=== PATIENT | female | born 1995 ===

== ENCOUNTER 2019-12-23 16:10 | Observation (INO) | payer OTHER ==
--- NOTE | 2019-12-23 16:10 | NUR ---
JUD LEE presented to unit via from ED, accompanied by ems, with c/o ELEVATED BP;2/8 BPP. JUD LEE weighed, gowned, voided, and to bed. EFHM and TOCO applied, VS taken. JUD LEE oriented to bed controls, call light, TV, heat, and A/C controls.
[2019-12-23] MEDS ORDERED: LACTATED RINGERS 1,000 ML IV SCH (16:45)
[2019-12-23 16:47] LABS: BILIRUBIN,URINE NEGATIVE (NEGATIVE); CLARITY,URINE CLEAR; COLOR,URINE YELLOW; GLUCOSE, URINE (UA) NEGATIVE (NEGATIVE); KETONES,URINE NEGATIVE (NEGATIVE); LEUKOCYTE ESTERASE ,URINE NEGATIVE (NEGATIVE); NITRITE,URINE NEGATIVE (NEGATIVE); PROTEIN,URINE NEGATIVE (NEGATIVE)
[2019-12-23 16:59] LABS: HEMOGLOBIN 11.4 g/dL (11.5-16.0); MEAN PLATELET VOLUME 11.4 fL (9.0-12.2); WHITE BLOOD COUNT 7.6 10^3/uL (4.3-11.0)
[2019-12-23 17:03] LABS: AMPHETAMINE SCREEN, URINE POSITIVE (NEGATIVE); BARBITURATE SCREEN URINE NEGATIVE (NEGATIVE); BENZODIAZEPINES SCREEN URINE NEGATIVE (NEGATIVE); CANNABINOID SCREEN, URINE NEGATIVE (NEGATIVE); COCAINE SCREEN URINE NEGATIVE (NEGATIVE); METHADONE STAT NEGATIVE (NEGATIVE); METHAMPHETAMINE SCREEN URINE S POSITIVE (NEGATIVE); OPIATE SCREEN URINE NEGATIVE (NEGATIVE); OXYCODONE STAT NEGATIVE (NEGATIVE); PROPOXYPHENE STAT NEGATIVE (NEGATIVE); TRICYCLIC ANTIDEPRESSANTS SCRE NEGATIVE (NEGATIVE)
--- NOTE | 2019-12-23 17:05 | History & Physical-OB/GYN ---
JENELLE MCGRATH MD 12/23/19 1705: History of Present Illness History of Present Illness Reason for visit/HPI elevated BP and BPP 2/8 in clinic Date of Admission 12/23/19 Date Seen by a Provider: Dec 23, 2019 Time Seen by a Provider: 17:00 I consulted on this patient on 12/23/19 16:59 Attending Physician Sameer Sierra MD Admitting Physician Sameer Sierra MD [facility] Consult James was seen in the office today for routine visit and was found to have elevated blood pressure of 152/96. BPP in the office was 2/8, so she was sent to OB triage by EMS. She reports she has not had elevated blood pressures during this . She has a headache, but it is the same as her usual headaches. It is not the worst headache she has ever had in her life. No visual changes, RUQ pain, chest pain, shortness of breath, or worsening lower extremity swelling. She reports that she smokes a half-pack of cigarettes daily. She uses meth, but last use was "a few weeks ago." Prior was term, c/b GDMA1 (diet controlled), and delivery was vaginal and uncomplicated. She is anxious about how things are going now, but otherwise has no other concerns or questions. VB-, LOF-, Ctx-, FM+ Allergies and Home Medications Allergies Coded Allergies: No Known Drug Allergies (Unverified , 12/23/19) Home Medications No Active Prescriptions or Reported Meds Patient Home Medication List Home Medication List Reviewed: Yes Past Nxdpzmi-Jthjhs-Vlqctk Hx Patient Social History Number of Children: 1 Alcohol Use: Denies Use Recreational Drug Use: Yes Drug of Choice: meth, last use a few weeks ago Smoking Status: Current Everyday Smoker Cigaretts per day: 10 Type Used: Cigarettes Immunizations Up To Date Tetanus Booster (TDap): Less than 5yrs Respiratory No Cardiovascular No Neurological Headaches /Migraines Reproductive System : Yes Hx : 2 Hx Para: 1 Hx Total # of Abortions (Spona: 0 HIV/AIDS: No Review of Systems Constitutional: no symptoms reported EENTM: No blurred vision, No eye pain, No vision loss, No nose congestion, No throat pain Respiratory: No cough, No short of breath Cardiovascular: No chest pain; edema Gastrointestinal: No RUQ, No abdominal pain, No constipation, No diarrhea, No nausea, No vomiting Genitourinary: no symptoms reported : Yes Control/STD Prophylaxis: None Musculoskeletal: no symptoms reported Skin: no symptoms reported Psychiatric/Neurological: Anxiety All Other Systems Reviewed Negative Unless Noted: Yes Physical Exam Physical Exam Vital Signs Capillary Refill : Labs Laboratory Tests 12/23/19 16:15: 12/23/19 16:49: General Appearance: Anxious Respiratory: Chest Non Tender, No Accessory Muscle Use, No Respiratory Distress Cardiovascular: Normal Peripheral Pulses Abdominal: non tender Extremity: Normal Range of Motion, Non Tender, No Calf Tenderness, Swelling Assessment/Plan Assessment and Plan 24 y/o at 34w6d (KRISTA 01/28/20) by LMP with c/b Meth use, tobacco use, chlamydia during 3rd tri, H/o GDMA1 admitted for PreE r/o and non- reassuring BPP - labs otherwise wnl #Elevated Blood pressure during - BP 152/96 in clinic > Observe overnight and monitor BP q4 hours > PreE labs, including urine P:C ratio and UA #Non-Reassuring BioPhysical Profile - BPP 2/8 in office on 12/23/19 > LR bolus; encourage oral intake; will consider mIVF if needed > observe overnight and repeat BPP 12/24/19 in AM #Chlamydia during 3rd trimester - Chlamydia positive on 12/16/19 > f/u urine Ct for BROOKS #Meth use - reported last use a few weeks ago. May be contributing to elevated blood pressures > Cup Machine Operator consult; appreciate recs #Tobacco Use - Currently smoking 1/2 ppd > Encouraged tobacco cessation > Cup Machine Operator consult; appreciate recs d/w Dr. Mariela Mcgrath MD [facility] Resident Physician, PGY-2 Admission Diagnosis Admission Status: Observation Diagnosis/Problems Diagnosis/Problems (1) History of biophysical profile (2) Elevated blood pressure reading Status: Acute (3) Methamphetamine use Status: Acute (4) Chlamydia infection affecting in third trimester Status: Acute SAMEER SIERRA MD 12/26/19 1118: Allergies and Home Medications Allergies Coded Allergies: No Known Drug Allergies (Unverified , 12/23/19) Home Medications No Active Prescriptions or Reported Meds Supervisory-Addendum Brief Supervisory Addendum Verification and Attestation of Medical Student E/M Service A medical student performed and documented this service in my presence. I reviewed and verified all information documented by the medical student and made modifications to such information, when appropriate. I personally performed the physical exam and medical decision making. Sameer Sierra, Dec 26, 2019,11:18 See Short Stay Summary JENELLE MCGRATH MD Dec 23, 2019 17:05 SAMEER SIERRA MD Dec 26, 2019 11:18
[2019-12-23 17:09] LABS: ALBUMIN 2.8 GM/DL (3.2-4.5)
[2019-12-23 17:10] LABS: CHLORIDE 108 MMOL/L (98-107); POTASSIUM 3.8 MMOL/L (3.6-5.0); SODIUM 135 MMOL/L (135-145)
[2019-12-23 17:12] LABS: URINE CREATININE FOR RATIO 115 MG/DL (30-125)
[2019-12-23 17:12] LABS: GLUCOSE 104 MG/DL (70-105); TOTAL PROTEIN 5.9 GM/DL (6.4-8.2)
[2019-12-23 17:13] LABS: BACTERIA,URINE NEGATIVE /HPF; URINE PROTEIN FOR RATIO ONLY 15 MG/DL (6-12)
[2019-12-23 17:13] LABS: CARBON DIOXIDE 18 MMOL/L (21-32)
[2019-12-23 17:14] LABS: BILIRUBIN,TOTAL 0.2 MG/DL (0.1-1.0)
[2019-12-23 17:15] LABS: ALKALINE PHOSPHATASE 99 U/L (40-136)
[2019-12-23 17:16] LABS: CREATININE SERUM 0.61 MG/DL (0.60-1.30); GFR ESTIMATED > 60
[2019-12-23 17:17] LABS: BUN/CREATININE RATIO 16
[2019-12-23 17:19] LABS: ALANINE AMINOTRANSFERASE 12 U/L (0-55); URIC ACID 4.1 MG/DL (2.6-7.2)
[2019-12-23 17:31] VITALS: BP 127/68
--- NOTE | 2019-12-23 19:30 | NUR ---
To pt room. Assessments and vs done. No needs at this time. Discussed POC with pt. Verbalized understanding.
[2019-12-23 20:00] VITALS: BP 122/61
--- NOTE | 2019-12-23 21:30 | NUR ---
Resting comfortably. No needs. Denies FRAGA, blurry vision, epigastric pain
--- NOTE | 2019-12-24 00:45 | NUR ---
Pt sleeping soundly.
[2019-12-24 00:51] VITALS: BP 104/53
--- NOTE | 2019-12-24 02:00 | NUR ---
Up to bathroom to void. No needs.
--- NOTE | 2019-12-24 04:00 | NUR ---
Pt is sleeping soundly.
--- NOTE | 2019-12-24 05:00 | NUR ---
Pt is lying on side. Difficult to trace baby. Audible good movement while adjusting monitors.
--- NOTE | 2019-12-24 05:55 | OB Triage Report ---
JENELLE MCGRATH MD 12/24/19 0555: Standard Progress Note Progress Notes/Assess & Plan Date Seen by a Provider: Dec 24, 2019 Time Seen by a Provider: 05:50 Expected Date of Delivery: Jan 28, 2020 Gestational Age in Weeks: 35 Gestational Age in Days: 0 LMP/KRISTA Comment: Patient without complaints this morning. Feeling better overall and less anxious. Denies headahces, RUQ pain, visual changes, chest pain, or shortness of breath. Hopeful that her BPP will be done soon. Review of Systems otherwise negative Physical Exam: Gen: no acute distress Resp: non-labored respiration GI: Gravid abdomen Ext: mild lower extremity non-pitting edema Neuro: grossly intact Progress/Assessment & Plan 24 y/o at 35w0d (KRISTA 01/28/20) by LMP with c/b Meth use, tobacco use, chlamydia during 3rd tri, H/o GDMA1 admitted for PreE r/o and non- reassuring BPP - labs otherwise wnl #Non-Reassuring BioPhysical Profile - BPP 2/8 in office on 12/23/19 > LR bolus; encourage oral intake; will consider mIVF if needed > repeat BPP 12/24/19 in AM #Elevated Blood pressure during - BP 152/96 in clinic; BP since admission wnl - PreE labs reassuring, urine P:C ratio 0.13 > monitor BP q4 hours #Chlamydia during 3rd trimester - Chlamydia positive on 12/16/19 > f/u urine Ct for BROOKS #Meth use - UDS positive for meth and amphetamines. May be contributing to elevated blood pressures > Crutcher Helper consult; appreciate recs #Tobacco Use - Currently smoking 1/2 ppd > Encouraged tobacco cessation > Crutcher Helper consult; appreciate recs d/w Dr. Mariela Mcgrath MD [facility] Resident Physician, PGY-2 Diagnosis/Problems Diagnosis/Problems (1) History of biophysical profile (2) Elevated blood pressure reading Status: Acute (3) Methamphetamine use Status: Acute (4) Chlamydia infection affecting in third trimester Status: Acute SAMEER SIERRA MD 12/26/19 1119: Supervisory-Addendum Brief Supervisory Addendum Verification and Attestation of Medical Student E/M Service A Resident Physician performed and documented this service in my presence. I reviewed and verified all information documented by the medical student and made modifications to such information, when appropriate. I personally performed the physical exam and medical decision making. Sameer Sierra, Dec 26, 2019,11:18 See Short Stay Summary JENELLE MCGRATH MD Dec 24, 2019 05:55 SAMEER SIERRA MD Dec 26, 2019 11:19
[2019-12-24 06:00] VITALS: BP 103/52
--- NOTE | 2019-12-24 07:20 | NUR ---
Report given to Jessica DAVALOS
--- NOTE | 2019-12-24 07:20 | NUR ---
REPORT RECEIVED FROM SHANTA DAVALOS.
--- NOTE | 2019-12-24 07:45 | NUR ---
INITIAL ASSESSMENT COMPLETED, VSS SEE INTERVENTIONS FOR DETAILED ASSESSMENTS, PLAN OF CARE REVIEWED WITH PT, NO QUESTIONS OR CONCERNS NOTED.
--- NOTE | 2019-12-24 08:20 | NUR ---
BPP RESULTS CALLED TO DR PAUL, MESSAGE LEFT.
--- NOTE | 2019-12-24 08:28 | Diagnostic Imaging Report ---
TIME OF STUDY: 12/24/2019 8:20 AM INDICATION: BPP 2/8 on 12/23/19 w/ ESCOBAR 8.5. COMPARISON: None available. TECHNIQUE: Transabdominal sonogram was performed. GESTATIONAL AGE: 35 weeks, 0 days GENERAL EVALUATION: Presentation: Cephalic Placenta: Posterior Cardiac activity: 142 bpm Amniotic fluid index: The total ESCOBAR is 12 cm. The largest vertical pocket measures 6.0 cm. BIOPHYSICAL PROFILE SCORING: tone: 2 movement: 2 breathin Amniotic fluid: 2 TOTAL SCORE: 6 out of 8 FINDINGS/ IMPRESSION: 1. Single live intrauterine gestation with biophysical profile score of 6 out of 8. No gross abnormalities are detected. heart rate is 142 bpm. Total ESCOBAR is 12 cm. Recommend follow-up as indicated. Dictated by: Dictated on workstation # [id number]
--- NOTE | 2019-12-24 08:30 | NUR ---
DR PAUL HERE REVIEWING SONO RESULTS. NEW ORDERS RECEIVED.
[2019-12-24 08:45] VITALS: BP 111/57
--- NOTE | 2019-12-24 09:05 | NUR ---
DISCHARGE INSTRUCTIONS EXPLAINED WITH PT, PT VERBALIZES UNDERSTANDING. INSTRUCTIONS SIGNED, NO DISTRESS NOTED, PT TO RETURN FRIDAY AT 2PM TO [facility] FOR REPEAT BPP. PT AMBULATED TO [facility] FOR CARE VAN TRANSFER HOME.
--- NOTE | 2019-12-24 09:08 | Short Stay Summary ---
HPI History of Present Illness: 24 yo @ 35.0 wga today sent from clinic for BPP 2/8 and elevated blood pressures. Patient has long history of substance abuse. States that she has not done Meth in over 4 weeks but UDS is +. She is feeling baby move. Denies any LOF, Vag bleeding or ctxs. ON: Blood pressures have been 120/80s. Baby has been reactive all night. No ctxs or pain. Normal pre eclampsia labs. Source: patient Exam Limitations: no limitations Date seen by provider: Dec 24, 2019 Time Seen by Provider: 08:35 Attending Physician Sameer Sierra MD PCP [place] Includes [facility] Consult Date of Admission Dec 23, 2019 at 16:11 Home Medications Home Medications Reviewed patient Home Medication Reconciliation performed by pharmacy medication reconciliations geophysical data technician and/or nursing. Patients Allergies have been reviewed. Allergies Coded Allergies: No Known Drug Allergies (Unverified , 12/23/19) DGS-Mbwtvq-Vhmjoa Hx Patient Social History Number of Children: 1 Alcohol Use: Denies Use Recreational Drug Use: Yes Drug of Choice: meth, amphetemines Smoking Status: Current Everyday Smoker Cigaretts per day: 10 Type Used: Cigarettes 2nd Hand Smoke Exposure: No Immunizations Up To Date Tetanus Booster (TDap): Less than 5yrs Date of Influenza Vaccine: Nov 23, 2019 Past Medical History Substance Abuse Depression Family Medical History Significant Family History: No Pertinent Family Hx Review of Systems ([facility]) Constitutional: no symptoms reported; No chills, No fever EENTM: blurred vision Respiratory: no symptoms reported; No cough, No dyspnea on exertion, No short of breath Cardiovascular: no symptoms reported; No chest pain, No edema Gastrointestinal: no symptoms reported; No abdominal pain, No nausea, No vomiting Genitourinary: No dysuria; frequency; No hematuria : Yes Musculoskeletal: no symptoms reported Skin: no symptoms reported Psychiatric/Neurological: Headache Reviewed Test Results Reviewed Test Results Lab Laboratory Tests Test 12/23/19 16:15 12/23/19 16:49 Range/Units Urine Color YELLOW Urine Clarity CLEAR Urine pH 6.0 5-9 Urine Specific [place] 1.025 H 1.016-1.022 Urine Protein 15 H 6-12 MG/DL Urine Glucose (UA) NEGATIVE NEGATIVE Urine Ketones NEGATIVE NEGATIVE Urine Nitrite NEGATIVE NEGATIVE Urine Bilirubin NEGATIVE NEGATIVE Urine Urobilinogen 0.2 < = 1.0 MG/DL Urine Leukocyte Esterase NEGATIVE NEGATIVE Urine RBC (Auto) NEGATIVE NEGATIVE Urine RBC NONE /HPF Urine WBC NONE /HPF Urine Squamous Epithelial Cells 2-5 /HPF Urine Crystals NONE /LPF Urine Bacteria NEGATIVE /HPF Urine Casts NONE /LPF Urine Mucus NEGATIVE /LPF Urine Culture Indicated NO Urine Creatinine 115 30-125 MG/DL Urine Protein/Creatinine Ratio 0.13 Urine Opiates Screen NEGATIVE NEGATIVE Urine Oxycodone Screen NEGATIVE NEGATIVE Urine Methadone Screen NEGATIVE NEGATIVE Urine Propoxyphene Screen NEGATIVE NEGATIVE Urine Barbiturates Screen NEGATIVE NEGATIVE Ur Tricyclic Antidepressants Screen NEGATIVE NEGATIVE Urine Phencyclidine Screen NEGATIVE NEGATIVE Urine Amphetamines Screen POSITIVE H NEGATIVE Urine Methamphetamines Screen POSITIVE H NEGATIVE Urine Benzodiazepines Screen NEGATIVE NEGATIVE Urine Cocaine Screen NEGATIVE NEGATIVE Urine Cannabinoids Screen NEGATIVE NEGATIVE White Blood Count 7.6 4.3-11.0 10^3/uL Red Blood Count 3.78 L 3.80-5.11 10^6/uL Hemoglobin 11.4 L 11.5-16.0 g/dL Hematocrit 33 L 35-52 % Mean Corpuscular Volume 87 80-99 fL Mean Corpuscular Hemoglobin 30 25-34 pg Mean Corpuscular Hemoglobin Concent 35 32-36 g/dL Red Cell Distribution Width 12.7 10.0-14.5 % Platelet Count 195 130-400 10^3/uL Mean Platelet Volume 11.4 9.0-12.2 fL Sodium Level 135 135-145 MMOL/L Potassium Level 3.8 3.6-5.0 MMOL/L Chloride Level 108 H 98-107 MMOL/L Carbon Dioxide Level 18 L 21-32 MMOL/L Anion Gap 9 5-14 MMOL/L Blood Urea Nitrogen 10 7-18 MG/DL Creatinine 0.61 0.60-1.30 MG/DL Estimat Glomerular Filtration Rate > 60 BUN/Creatinine Ratio 16 Glucose Level 104 70-105 MG/DL Uric Acid 4.1 2.6-7.2 MG/DL Calcium Level 8.0 L 8.5-10.1 MG/DL Corrected Calcium 9.0 8.5-10.1 MG/DL Total Bilirubin 0.2 0.1-1.0 MG/DL Aspartate Amino Transf (AST/SGOT) 15 5-34 U/L Alanine Aminotransferase (ALT/SGPT) 12 0-55 U/L Alkaline Phosphatase 99 40-136 U/L Lactate Dehydrogenase 187 125-220 U/L Total Protein 5.9 L 6.4-8.2 GM/DL Albumin 2.8 L 3.2-4.5 GM/DL Physical Exam-([facility]) Physical Exam Vital Signs VS - Last 72 Hours, by Label 12/23/19 12/23/19 12/24/19 12/24/19 17:31 20:00 00:51 06:00 Temp 36.9 36.6 36.7 36.2 Pulse 111 106 83 97 Resp 20 18 20 18 B/P (MAP) 122/61 (81) 104/53 (70) 103/52 (69) Pulse Ox 98 98 O2 Delivery Room Air Capillary Refill : Less Than 3 Seconds General Appearance: WD/WN, no apparent distress, other (Gravid female, NAD) HEENT: PERRL/EOMI Respiratory: chest non-tender, lungs clear, normal breath sounds, no respiratory distress, no accessory muscle use Cardiovascular: normal peripheral pulses, regular rate, rhythm, no murmur Gastrointestinal: normal bowel sounds, non tender, soft, other (Gravid) Back: no CVA tenderness, no vertebral tenderness Extremities: normal range of motion, no calf tenderness, normal capillary refill, pedal edema (trace) Neurologic/Psychiatric: plywood layup line back feeder II-XII nml as tested, no motor/sensory deficits, alert, normal mood/affect, oriented x 3 Skin: normal color, warm/dry Lymphatic: no adenopathy Short Stay Diagnosis Discharge Diagnosis-Short Stay Admission Diagnosis Elevated blood pressure in third Trimester Abnormal BPP 35 week gestation Substance abuse in Chylmydia infection in Final Discharge Diagnosis See Above Conclusion Plan See problem list Was the Problem List Reviewed?: Yes Problem List (1) History of biophysical profile (2) Elevated blood pressure reading Status: Acute (3) Methamphetamine use Status: Acute (4) Chlamydia infection affecting in third trimester Status: Acute Copy Copies To 1: SAMEER SIERRA MD Assessment/Plan Assessment/Plan Admission Status: Observation (1) Elevated blood pressure reading Status: Acute Assessment & Plan: - Blood pressure well controlled overnight, FRAGA resolved, BPP 6/8 with reactive NST, Will discharge today with repeat BPP on Friday at [facility], Encouraged patient to relax and not do any strenuous over the weekend. Pre eclampsia precautions and labor precautions discussed (2) 35 weeks gestation of (3) Methamphetamine use Status: Acute (4) Chlamydia infection affecting in third trimester Status: Acute Assessment & Plan: - BROOKS done, results pending SAMEER SIERRA MD Dec 24, 2019 09:08
--- NOTE | 2019-12-24 09:10 | Discharge Summary ---
Discharge [facility] Reconcile Patient Problems Problems Reviewed?: Yes Discharge Medications New, Converted or Re-Newed RX: Other (No new meds) Patient Instructions Goal/Follow Up Appt: NST BPP on Friday at 2 PM at [facility] Appt with Dr Sierra on Activity & Diet Discharge Diet: No Restrictions SAMEER SIERRA MD Dec 24, 2019 09:10
--- NOTE | 2019-12-24 12:52 | NUR ---
CM/SS: Attempted to visit with pt as per Social Service Consult related to meth use during . Pt has already dismissed. Pt does have an appointment at [facility] on Friday, 12/26 with her physician.
[2019-12-24] MEDS ORDERED: ERYTHROMYCIN OPHTH OINT 1 GM (SINGLE USE) TUBE ONE (13:09)
[2019-12-24] MEDS ORDERED: PHYTONADIONE (VIT. K) NEONATAL 1 MG/0.5 ML AMP ONE (13:10)
[2019-12-24] MEDS ORDERED: PETROLATUM JELLY(VASELINE) 49 GM JAR ONE (13:10)
== END 2019-12-24 09:05 | disposition home or self-care (01) ==
LOC: WSo 16:10 → LDRP 16:11 → WSo 16:26
PROVIDERS: ADMIT Family Medicine; ATTEND Family Medicine
DX: O13.3 Gestational [pregnancy-induced] hypertension without significant proteinuria, third trimester (principal); O98.313 Other infections with a predominantly sexual mode of transmission complicating pregnancy, third trimester; O99.343 Other mental disorders complicating pregnancy, third trimester; F32.9 Major depressive disorder, single episode, unspecified; F17.210 Nicotine dependence, cigarettes, uncomplicated; Z3A.35 35 weeks gestation of pregnancy
CPT/HCPCS: 76819; 80053; 80306; 81000; 82570; 83615; 84156; 84550; 85027; 87491; 96360; G0378; G0379; 36415; 99211

== ENCOUNTER 2020-01-24 18:26 | Inpatient (IN) | payer MEDICAID ==
[~2020-01-24] VITALS: Ht 155 cm; Wt 106.1 kg
[2020-01-24] MEDS ORDERED: AMPICILLIN FOR IV USE 2,000 MG in WATER (STERILE) FOR INJECTION 14.8 ML IV SCH (18:32)
[2020-01-24 18:35] VITALS: BP 141/80
--- NOTE | 2020-01-24 18:35 | NUR ---
JUD LEE [facility], accompanied by BOYFRIEND. JUD LEE weighed, gowned, voided, and to bed. EFHM and TOCO applied, VS taken. JUD LEE oriented to bed controls, call light, TV, heat, and A/C controls.
[2020-01-24] MEDS ORDERED: MINERAL OIL CONCENTRATE 99.9% 15 ML UDC TOP PRN (18:45)
[2020-01-24] MEDS ORDERED: MISOPROSTOL 100 MCG (CYTOTEC) TAB PO NR (18:45)
[2020-01-24] MEDS ORDERED: LIDOCAINE/EPI 2% 1:200,00 (XYLOCAINE) 10 ML VIAL INJ PRN (18:45)
--- NOTE | 2020-01-24 18:45 | NUR ---
Patient denies previous temp or signs of infection. No lower respiratory symptoms, no covid symptoms. Slight temp noted on admit. Pulse elevated at 120. Will watch closely.
[2020-01-24 18:56] LABS: BILIRUBIN,URINE NEGATIVE (NEGATIVE); CLARITY,URINE CLEAR; COLOR,URINE YELLOW; GLUCOSE, URINE (UA) NEGATIVE (NEGATIVE); KETONES,URINE NEGATIVE (NEGATIVE); LEUKOCYTE ESTERASE ,URINE NEGATIVE (NEGATIVE); NITRITE,URINE NEGATIVE (NEGATIVE); PROTEIN,URINE NEGATIVE (NEGATIVE)
--- NOTE | 2020-01-24 19:05 | NUR ---
monitor strip with occasional contractions, patient does not appear to notice them. FHR baseline 150's, with average variability. Accels noted. Variable decels observed. Report to next shift.
[2020-01-24 19:27] LABS: AMPHETAMINE SCREEN, URINE POSITIVE (NEGATIVE); BARBITURATE SCREEN URINE NEGATIVE (NEGATIVE); BENZODIAZEPINES SCREEN URINE NEGATIVE (NEGATIVE); CANNABINOID SCREEN, URINE NEGATIVE (NEGATIVE); COCAINE SCREEN URINE NEGATIVE (NEGATIVE); METHADONE STAT NEGATIVE (NEGATIVE); METHAMPHETAMINE SCREEN URINE S POSITIVE (NEGATIVE); OPIATE SCREEN URINE NEGATIVE (NEGATIVE); OXYCODONE STAT NEGATIVE (NEGATIVE); PROPOXYPHENE STAT NEGATIVE (NEGATIVE); TRICYCLIC ANTIDEPRESSANTS SCRE NEGATIVE (NEGATIVE)
[2020-01-24 19:32] LABS: BACTERIA,URINE NEGATIVE /HPF
[2020-01-24 19:33] LABS: AMORPHOUS SEDIMENT,UR FEW AMOR URATES /LPF
[2020-01-24] MEDS: D5 LR IV SOLUTION 1,000 ML IV SCH ×2 (19:39→23:01)
[2020-01-24 19:55] LABS: BASOPHILS % (AUTO) 0 % (0-10); EOSINOPHILS # (AUTO) 0.1 10^3/uL (0.0-0.3); EOSINOPHILS % (AUTO) 2 % (0-10); HEMATOCRIT 33 % (35-52); HEMOGLOBIN 11.4 g/dL (11.5-16.0); LYMPHOCYTES # (AUTO) 1.7 10^3/uL (1.0-4.0); LYMPHOCYTES % (AUTO) 22 % (12-44); MEAN CORPUSCULAR HEMOGLOBIN 30 pg (25-34); MEAN CORPUSCULAR HGB CONC 34 g/dL (32-36); MEAN CORPUSCULAR VOLUME 86 fL (80-99); MEAN PLATELET VOLUME 11.5 fL (9.0-12.2); MONOCYTES # (AUTO) 0.5 10^3/uL (0.0-1.0); MONOCYTES % (AUTO) 6 % (0-12); NEUTROPHILS # (AUTO) 5.3 10^3/uL (1.8-7.8); NEUTROPHILS % (AUTO) 69 % (42-75); PLATELET COUNT 223 10^3/uL (130-400); WHITE BLOOD COUNT 7.6 10^3/uL (4.3-11.0)
[2020-01-24 20:27] VITALS: BP 126/77
--- NOTE | 2020-01-24 20:29 | NUR ---
Dr. Sierra called. Strip, vitals, and UDS reviewed. Dr. Sierra orders SVE before we proceed with Cytotec at this time.
--- NOTE | 2020-01-24 20:35 | NUR ---
Dr. Sierra informed that pt can be stretched to 3cm and is 80% effaced. orders oral Cytotec to be given.
[2020-01-24 21:47] VITALS: BP 141/79
[2020-01-24] MEDS ORDERED: MISOPROSTOL 100 MCG (CYTOTEC) TAB PO SCH (22:45)
[2020-01-24] MEDS: AMPICILLIN FOR IV USE 1,000 MG in WATER (STERILE) FOR INJECTION 7.4 ML IV SCH (23:28)
[2020-01-24 23:40] VITALS: BP 134/82
[2020-01-25] VITALS (15 sets, daily range): BP systolic 117–153; BP diastolic 60–79
[2020-01-25] MEDS: AMPICILLIN FOR IV USE 1,000 MG in WATER (STERILE) FOR INJECTION 7.4 ML IV SCH ×2 (04:04→07:29)
[2020-01-25] MEDS ORDERED: BUTORPHANOL INJ 2 MG/ML (STADOL) VIAL ONE (04:51)
[2020-01-25] MEDS ORDERED: BUTORPHANOL INJ 2 MG/ML (STADOL) VIAL IV ONE (05:00)
[2020-01-25] MEDS ORDERED: OXYTOCIN PRE-MIX DRIP 500 ML IV SCH ×2 (06:33→09:20)
[2020-01-25] MEDS ORDERED: OXYTOCIN PRE-MIX DRIP 500 ML IV ONE ×2 (06:34→09:13)
[2020-01-25] MEDS: D5 LR IV SOLUTION 1,000 ML IV SCH (07:28)
[2020-01-25] MEDS ORDERED: fentaNYL 2 mcg/ml BUPIVA 0.125 100 ML ONE (07:38)
--- NOTE | 2020-01-25 08:34 | NUR ---
Spontaneous vaginal delivery of placenta with cord per Dr Sierra. pitocin increased to 999ml/hr as ordered per Dr Sierra with fundal massage per Dr Sierra at this time. [address] sierra with no repairs needed 0838 vss. ffu/0 with moderate rubra noted, no clots expressed. plan of care reviewed with pt 0853 vss. ffu/0 with moderate rubra noted and 2 small 2cm clots expressed. sandwich tray and coke to bedside for pt 0908 vss ffu/0 with moderate rubra noted, 1 2 cm clot expressed 0923 vss ffu/0 with lt-mod rubra noted and 3 small 2cm clots expressed.
--- NOTE | 2020-01-25 08:35 | NUR ---
Report received from Yanira montalvo RN
--- NOTE | 2020-01-25 08:50 | Newborn Infant H&P-Admission ---
[place] Infant Record Exam Date & Time Date seen by provider: Jan 25, 2020 Time seen by provider: 08:47 Provider PCP [place] Delivery Assessment Expected Date of Delivery: Jan 28, 2020 Hx : 2 Hx Para: 1 Gestational Age in Weeks: 39 Gestational Age in Days: 3 Amniotic Membrane Rupture Time: 08: Delivery Date: Jan 25, 2020 Delivery Time: 08: Condition of : Living Delivery Method: Spontaneous Vaginal Operative Indications (Cesarea: N/A-Vaginal Delivery Anesthesia Type: None Events: Routine care Intrapartal Events: None Gender: Male Viability: Living Mother's Group Strep Mother's Group B Strep: Positive # of Doses for Mother: 3 Score Score at 1 Minute: 8 Score at 5 Minutes: 9 Condition/Feeding Benefits of discussed with mother. Weight/Height Weight: 3160 Weight (Calculated Grams): 906714.000 Vital Signs Vital Signs Date Time Temp Pulse Resp B/P (MAP) Pulse Ox O2 Delivery O2 Flow Rate FiO2 01/25/20 06:45 36.5 74 22 136/64 (88) Room Air 01/25/20 05:45 75 20 135/74 (94) Room Air 01/25/20 04:45 36.7 94 18 133/60 (84) Room Air 01/24/20 23:40 36.6 84 20 134/82 (99) Room Air 01/24/20 21:47 37.0 88 20 141/79 (99) Room Air 01/24/20 20:27 36.8 88 20 126/77 (93) Room Air 01/24/20 18:35 37.5 121 18 98 Room Air Laboratory Tests 01/24/20 18:40: Urine Color YELLOW, Urine Clarity CLEAR, Urine pH 6.0, Urine Specific [place] <=1.005, Urine Protein NEGATIVE, Urine Glucose (UA) NEGATIVE, Urine Ketones NEGATIVE, Urine Nitrite NEGATIVE, Urine Bilirubin NEGATIVE, Urine Urobilinogen 0.2, Urine Leukocyte Esterase NEGATIVE, Urine RBC (Auto) NEGATIVE, Urine RBC NONE, Urine WBC NONE, Urine Squamous Epithelial Cells 2-5, Urine Crystals PRESENTH, Urine Amorphous Sediment FEW JOSE GUADALUPE URATESH, Urine Bacteria NEGATIVE, Urine Casts NONE, Urine Mucus NEGATIVE, Urine Culture Indicated NO, Urine Opiates Screen NEGATIVE, Urine Oxycodone Screen NEGATIVE, Urine Methadone Screen NEGATIVE, Urine Propoxyphene Screen NEGATIVE, Urine Barbiturates Screen NEGATIVE, Ur Tricyclic Antidepressants Screen NEGATIVE, Urine Phencyclidine Screen NEGATIVE, Urine Amphetamines Screen POSITIVEH, Urine Methamphetamines Screen POSITIVEH, Urine Benzodiazepines Screen NEGATIVE, Urine Cocaine Screen NEGATIVE, Urine Cannabinoids Screen NEGATIVE 01/24/20 19:30: White Blood Count 7.6, Red Blood Count 3.84, Hemoglobin 11.4L, Hematocrit 33L, Mean Corpuscular Volume 86, Mean Corpuscular Hemoglobin 30, Mean Corpuscular Hemoglobin Concent 34, Red Cell Distribution Width 12.8, Platelet Count 223, Mean Platelet Volume 11.5, Immature Granulocyte % (Auto) 0, Neutrophils (%) (Auto) 69, Lymphocytes (%) (Auto) 22, Monocytes (%) (Auto) 6, Eosinophils (%) (Auto) 2, Basophils (%) (Auto) 0, Neutrophils # (Auto) 5.3, Lymphocytes # (Auto) 1.7, Monocytes # (Auto) 0.5, Eosinophils # (Auto) 0.1, Basophils # (Auto) 0.0, Immature Granulocyte # (Auto) 0.0 01/24/20 20:03: Impression on Admission Impression on Admission: , , Living SAMEER PAUL MD Jan 25, 2020 08:50
--- NOTE | 2020-01-25 08:51 | OB Labor & Delivery Record ---
Vag Delivery Note Vag Delivery Note Date of Delivery: 01/25/20 Preoperative Diagnosis: James Law is a (24 /Para 2 / 1, Gestational Age (wks)39.3 here for elective IOL with precipitous delivery Postoperative Diagnosis: Same Surgeon: SAMEER PAUL Curve Cleaner: None Anesthesia: None Delivery Type: Precipitous unattended vaginal delivery Findings: Viable Male , apgars 8/9, weight 3147 grams, 6#15 Lacerations: None Intact placenta with 3 vessel cord. Nuchal cord x1, No body cord or shoulder dystocia Estimated Blood Loss: 100 ml Complications: None Condition: Stable Description of Procedure: The patient is a 24 year old female who presented for Elective IOL. She was admitted and informed consent was obtained. Her labor course was remarkable for precipitous delivery in the bed with nursing staff. She progressed to complete dilatation and began to push. The 's head was delivered atraumatically in the MICHELLE position. The shoulders and remainder of the infant's body were then delivered without difficulty. Upon delivery, the head was held below the level of the perineum and the mouth and nares were bulb suctioned. The cord was doubly clamped and cut and the infant was handed off to the pediatric staff. An intact placenta with 3- vessel cord delivered via Mac @ 0831 by MD Mariela and there was found to be minimal bleeding.~ Vigorous fundal massage was performed and the fundus was found to be firm. IV oxytocin was given. Examination of the vagina and perineum revealed no lacerations that required repair. Following the repair, sponge, instrument and needle counts were correct. Mom and baby were both in stable condition in the labor suite. Vitals - Labs Vital Signs - I&O Vital Signs Date Time Temp Pulse Resp B/P (MAP) Pulse Ox O2 Delivery O2 Flow Rate FiO2 01/25/20 06:45 36.5 74 22 136/64 (88) Room Air 01/25/20 05:45 75 20 135/74 (94) Room Air 01/25/20 04:45 36.7 94 18 133/60 (84) Room Air 01/24/20 23:40 36.6 84 20 134/82 (99) Room Air 01/24/20 21:47 37.0 88 20 141/79 (99) Room Air 01/24/20 20:27 36.8 88 20 126/77 (93) Room Air 01/24/20 18:35 37.5 121 18 98 Room Air I & O 01/25/20 07:00 Intake Total 1000 ml Balance 1000 ml Labs Laboratory Tests 01/24/20 18:40: Urine Color YELLOW, Urine Clarity CLEAR, Urine pH 6.0, Urine Specific Cutler <=1.005, Urine Protein NEGATIVE, Urine Glucose (UA) NEGATIVE, Urine Ketones NEGATIVE, Urine Nitrite NEGATIVE, Urine Bilirubin NEGATIVE, Urine Urobilinogen 0.2, Urine Leukocyte Esterase NEGATIVE, Urine RBC (Auto) NEGATIVE, Urine RBC NONE, Urine WBC NONE, Urine Squamous Epithelial Cells 2-5, Urine Crystals PRESENTH, Urine Amorphous Sediment FEW JOSE GUADALUPE URATESH, Urine Bacteria NEGATIVE, Urine Casts NONE, Urine Mucus NEGATIVE, Urine Culture Indicated NO, Urine Opiates Screen NEGATIVE, Urine Oxycodone Screen NEGATIVE, Urine Methadone Screen NEGATIVE, Urine Propoxyphene Screen NEGATIVE, Urine Barbiturates Screen NEGATIVE, Ur Tricyclic Antidepressants Screen NEGATIVE, Urine Phencyclidine Screen NEGATIVE, Urine Amphetamines Screen POSITIVEH, Urine Methamphetamines Screen POSITIVEH, Urine Benzodiazepines Screen NEGATIVE, Urine Cocaine Screen NEGATIVE, Urine Cannabinoids Screen NEGATIVE 01/24/20 19:30: White Blood Count 7.6, Red Blood Count 3.84, Hemoglobin 11.4L, Hematocrit 33L, Mean Corpuscular Volume 86, Mean Corpuscular Hemoglobin 30, Mean Corpuscular Hemoglobin Concent 34, Red Cell Distribution Width 12.8, Platelet Count 223, Mean Platelet Volume 11.5, Immature Granulocyte % (Auto) 0, Neutrophils (%) (Auto) 69, Lymphocytes (%) (Auto) 22, Monocytes (%) (Auto) 6, Eosinophils (%) (Auto) 2, Basophils (%) (Auto) 0, Neutrophils # (Auto) 5.3, Lymphocytes # (Auto) 1.7, Monocytes # (Auto) 0.5, Eosinophils # (Auto) 0.1, Basophils # (Auto) 0.0, Immature Granulocyte # (Auto) 0.0 01/24/20 20:03: SAMEER PAUL MD Jan 25, 2020 08:50
[2020-01-25] MEDS ORDERED: LACTATED RINGERS 1,000 ML IV SCH (09:15)
[2020-01-25] MEDS ORDERED: TETANUS,DIPTH,PERTUSS P/F (BOOSTRIX) 0.5 ML VIAL IM ONE (09:30)
[2020-01-25] MEDS ORDERED: BENZOCAINE/MENTHOL (DERMOPLAST) 60 ML CAN TP PRN (09:30)
[2020-01-25] MEDS ORDERED: MEASLES,MUMPS,RUBELLA 1 EA INJ SQ ONE (09:30)
[2020-01-25] MEDS ORDERED: WITCH HAZEL(TUCKS) 40 EA JAR TOP PRN (09:30)
--- NOTE | 2020-01-25 10:20 | NUR ---
Rn to bedside. pt asssisted up to side of bed and then ambulates to bathroom, void and pericare. plan of care reviewed with pt and s.o. fresh ice water to bedside table.
--- NOTE | 2020-01-25 10:25 | NUR ---
Transferred to room 310. Ambulates self with steady gait and belongings. Accompanied by s.o. and RN. Oriented to room, call light and surrroundings.
--- NOTE | 2020-01-25 10:32 | NUR ---
Dr Sierra notified of BP's obtained.
--- NOTE | 2020-01-25 10:49 | NUR ---
CM/SS: Attempted to visit with pt per Maintenance Associate Consult related to drugs and alcohol. Pt has just delivered baby several hours ago. This worker will follow up with pt later today or in the morning. Information is passed along to pt's nurse. This worker will follow up.
[2020-01-25] MEDS: NICOTINE 21 MG (NICODERM) PATCH TD SCH (11:03)
[2020-01-25] MEDS: ACETAMINOPHEN 500 MG TAB (TYLENOL) PO SCH ×2 (11:04→17:58)
[2020-01-25] MEDS: IBUPROFEN 600 MG (MOTRIN) TAB PO SCH ×2 (11:04→17:58)
[2020-01-25] MEDS ORDERED: CATHETER FLUSH 10 ML SYR IV SCH (14:00)
--- NOTE | 2020-01-25 14:45 | NUR ---
Pt to shower while this RN is in room to bathe infant. IV site wrapped up. Towels and shower supplies given to pt. No further needs at this time.
--- NOTE | 2020-01-25 16:40 | NUR ---
pt resting in bed holding in her arms appropriate bonding. pt reports no pain. reports voiding but burning with voiding so holding urine. reviewed need to void regularly so uterus will not get boggy and increase the amt of bleeding pt is having. pt verbalizes understanding of instructions. pt requesting menu for stork meal. menu to room with instructions on how to order. pt denies needs at this time.
--- NOTE | 2020-01-25 16:40 | NUR ---
received report from Sy Sheets RN
--- NOTE | 2020-01-25 18:02 | NUR ---
tylenol 100mg p.o and motrin 600mg p.o per order. pt resting in bed. preparing to change infants diaper. denies pain. pt ate 100% of dinner tray. no changes in status. sleeping in crib.
--- NOTE | 2020-01-25 19:46 | History & Physical-OB ---
OB - Chief Complaint & HPI Date/Time Date of Admission: Date of Admission: Jan 24, 2020 at 18:26 Date seen by a Provider: Jan 25, 2020 Time Seen by a Provider: 08:30 Chief Complaint/History OB-Reason for Admission/Chief: Induction of Labor Hx : 2 Hx Para: 1 Expected Date of Delivery: Jan 28, 2020 Gestational Age in Weeks: 39 Gestational Age in Days: 3 Indication for induction: other (Elective) History of Labs A+, Ab neg, Rub Imm, RPR/HepB/HIV neg, GBS +, normal 1 hr GTT Allergies and Home Medications Allergies Coded Allergies: No Known Drug Allergies (Unverified , 12/23/19) Home Medications No Active Prescriptions or Reported Meds Patient Home Medication List Home Medication List Reviewed: Yes OB - History Hx of Present Care: Yes Ultrasounds: Normal mid trimester US Obstetrical Complications: None Medical Complications: Other (Maternal drug use) Information Induced Hypertension: No Maternal Gestational Diabetes: No Hemorrhage: No Obstetrical History Hx : 2 Hx Para: 1 Hx # Term Pregnancies: 1 Number of Living Children: 1 Delivery History Adverse Rxn to Tranfusion: No Patient Past Medical History Substance Abuse Depression Social History/Family History HIV/AIDS: No Recent Infectious Disease Expo: No Sexually Transmitted Disease: Yes Alcohol Use: Denies Use Recreational Drug Use: Yes Smoking Cessation: Current every day smoker 2nd Hand Smoke Exposure: No Immunizations Hepatitis A: Yes Hepatitis B: Yes Tetanus Booster (TDap): Less than 5yrs Date of Influenza Vaccine: Nov 23, 2019 Rubella: immune RPR/VDRL: Negative GBS Status: Positive HBsAG: Negative OB - Admission Exam Physical Exam Vitals: Vital Signs 01/25/20 01/25/20 12:34 16:40 Temp 37.0 Pulse 101 Resp 20 B/P (MAP) 131/75 (93) Pulse Ox 100 O2 Delivery Room Air HEENT: NCAT Heart: Rhythm Normal Lungs: Clear Abdomen: Soft Cervical Dilatation: other (Delivered) Labs Laboratory Tests Test 01/24/20 20:03 Range/Units Coronavirus (COVID-19)(PCR) Negative Negative OB - Assessment/Plan/Diagnosis Assessment Assessment: active labor Admission Dx Third Trimester 39 week gestation Maternal drug use Precipitous delivery Admission Status: Inpatient Order (span 2 midnights) Reason for Inpatient Admission: Labor Plan Other Plan 24 yo 2 39.3 wga here for elective IOL Cytotect started last night GBS +, Ampicillin Drug Use, SW consult placed Copy Copies To 1: SAMEER PAUL MD, HOLLY R MD Jan 25, 2020 19:46
--- NOTE | 2020-01-25 20:25 | NUR ---
To pts room for vs and assessments. No needs at this time. Discussed POC with pt. Verbalized understanding
--- NOTE | 2020-01-25 22:00 | NUR ---
pt sleeping soundly
[2020-01-26] MEDS: ACETAMINOPHEN 500 MG TAB (TYLENOL) PO SCH ×5 (00:03→23:50)
[2020-01-26] MEDS: IBUPROFEN 600 MG (MOTRIN) TAB PO SCH ×5 (00:03→23:50)
[2020-01-26] MEDS: DOCUSATE SODIUM 100 MG (COLACE) CAP PO SCH ×3 (00:03→20:36)
--- NOTE | 2020-01-26 00:15 | NUR ---
meds given. pt had been sleeping. no needs at this time
--- NOTE | 2020-01-26 04:15 | NUR ---
No needs at this time. resting quietly
[2020-01-26 05:48] LABS: BASOPHILS % (AUTO) 1 % (0-10); EOSINOPHILS # (AUTO) 0.1 10^3/uL (0.0-0.3); EOSINOPHILS % (AUTO) 2 % (0-10); HEMATOCRIT 30 % (35-52); LYMPHOCYTES # (AUTO) 2.1 10^3/uL (1.0-4.0); LYMPHOCYTES % (AUTO) 26 % (12-44); MEAN CORPUSCULAR HEMOGLOBIN 30 pg (25-34); MEAN CORPUSCULAR HGB CONC 33 g/dL (32-36); MEAN CORPUSCULAR VOLUME 90 fL (80-99); MEAN PLATELET VOLUME 11.4 fL (9.0-12.2); MONOCYTES # (AUTO) 0.7 10^3/uL (0.0-1.0); MONOCYTES % (AUTO) 8 % (0-12); NEUTROPHILS # (AUTO) 5.2 10^3/uL (1.8-7.8); NEUTROPHILS % (AUTO) 64 % (42-75); PLATELET COUNT 187 10^3/uL (130-400); WHITE BLOOD COUNT 8.2 10^3/uL (4.3-11.0)
[2020-01-26 06:30] VITALS: BP 119/67
--- NOTE | 2020-01-26 07:24 | Progress Note ---
Subjective Subjective/Events-last exam Patient voices no complaints this am. She is passing no vaginal clots. Objective Exam Last Set of Vital Signs Vital Signs Date Time Temp Pulse Resp B/P (MAP) Pulse Ox O2 Delivery O2 Flow Rate FiO2 01/26/20 06:30 37.1 100 18 119/67 (84) 100 01/25/20 20:36 Room Air Capillary Refill : Less Than 3 Seconds I&O Intake and Output 01/26/20 00:00 Intake Total 3114.8 ml Balance 3114.8 ml Intake IV Total 3114.8 ml General: Alert, No Acute Distress Lungs: Clear to Auscultation Abdomen: Soft Results/Procedures Lab Laboratory Tests 01/26/20 05:35: White Blood Count 8.2, Red Blood Count 3.36L, Hemoglobin 10.0L, Hematocrit 30L, Mean Corpuscular Volume 90, Mean Corpuscular Hemoglobin 30, Mean Corpuscular Hemoglobin Concent 33, Red Cell Distribution Width 13.2, Platelet Count 187, M dorothy Platelet Volume 11.4, Immature Granulocyte % (Auto) 0, Neutrophils (%) (Auto) 64, Lymphocytes (%) (Auto) 26, Monocytes (%) (Auto) 8, Eosinophils (%) (Auto) 2, Basophils (%) (Auto) 1, Neutrophils # (Auto) 5.2, Lymphocytes # (Auto) 2.1, Monocytes # (Auto) 0.7, Eosinophils # (Auto) 0.1, Basophils # (Auto) 0.0, Immature Granulocyte # (Auto) 0.0 Assessment/Plan Assessment/Plan Assessment & Plan 1. S/P day 1 -routine PP care today -resident services supervisor consult due to maternal drug usage pending. Clinical Quality Measures DVT/VTE Risk/Contraindication: Risk Factor Score Per Nursin RFS Level Per Nursing on Admit: 1=Low/No VTE PPX JEANNE BRADSHAW MD Jan 26, 2020 07:24
--- NOTE | 2020-01-26 08:05 | NUR ---
RN to room for assessment. Pt reports minimal bleeding and few dime sized clots expressed upon rising this morning. FFU/-2. Pt holding infant, resting. Fresh water given to pt, denies any needs or concerns at this time.
[2020-01-26] MEDS: PRENATAL VITAMIN 1 EA TAB PO SCH (08:06)
[2020-01-26] MEDS: NICOTINE 21 MG (NICODERM) PATCH TD SCH (08:31)
[2020-01-26] MEDS ORDERED: NICOTINE PATCH REMOVAL TP SCH (08:59)
[2020-01-26] MEDS ORDERED: NICOTINE 21 MG (NICODERM) PATCH TD SCH (09:00)
[2020-01-26 11:59] VITALS: BP 123/74
--- NOTE | 2020-01-26 13:27 | NUR ---
CM/SS: Visited with pt as per Social Service consult related to Drug and Alcohol. Plan: Pt is from home and will return there, where she lives with her boyfriend and will take child home from hospital when deemed appropriate. Summary: Pt reports to resent drug use prior to having the baby. She reports two weeks ago she used meth. Pt reports being from [place] and living from place to place in [place] and [place]. Pt reports drug use when living in [place] as well as being in [place] and [place]. Pt has a 4 year old that her parents have custody of in [place]. She does give this worker permission to call her parents to verify if they have the child - Father is Jacob - [phone]. Call to Jacob - [phone] - message left for him to call this worker at this [facility]. Pt reports having had involvement with Child Protective services in [place] and her parents have guardianship of her son. Pt is living with boyfriend Chay Bennett and she reports he just completed treatment in [place] and has a job at [employer]. Pt reports having items for baby. This worker educates on services in the area. She is advised to get WIC for the baby and is to call before leaving the hospital. Discuss other services in the area for baby. She is given information n [employer]. In discussing her drug use 2 weeks ago, she reports she was just around others that used and so did she. She reports she wont use now as she is holding the baby. Discuss concern for her not using again. She does not seem solid in her answer of not wanting to use - discuss treatment as well as mental health services. She is open to this but does not have a way there. Call made and [facility] - they do provide transportation. Pt is open to getting an appointment. Mental health and Drug and Alcohol services set up appts on 02/09/2020 at 12noon Mental health intake and 1:oopm with Drug and Alcohol Intake. Information is passed along to pt and staff for time of discharge. Pt is wished well. Addendum: 01/26/20 at 1353 by DELFINO CAMARA CM/SS: Pt is also told that this worker will need to make a Child Protective Services report - based on the drug use while she was 9 months . She verbalizes understanding.
--- NOTE | 2020-01-26 14:46 | NUR ---
CM/SS: Returned call from dad of pt. - Jacob - he does report he and his do have custody of pts son - Husam Burrell. This worker thanked him for returning the call.
[2020-01-26 17:55] VITALS: BP 126/71
[2020-01-26 23:50] VITALS: BP 112/56
[2020-01-27 05:45] VITALS: BP 125/79
[2020-01-27] MEDS: DOCUSATE SODIUM 100 MG (COLACE) CAP PO SCH (08:11)
[2020-01-27] MEDS: PRENATAL VITAMIN 1 EA TAB PO SCH (08:11)
[2020-01-27] MEDS: NICOTINE 21 MG (NICODERM) PATCH TD SCH (08:11)
--- NOTE | 2020-01-27 08:15 | NUR ---
RN to room for assessment. Daily scheduled meds given. FFU/-1. Light rubra lochia, no clots expressed. Pt denies passing any clots at this time. in mothers arms, resting quietly. Mother denies any needs or concerns at this time.
--- NOTE | 2020-01-27 08:26 | Discharge Inst-Women's Service ---
Discharge Inst-Women's Serv Depart Medication/Instructions New, Converted or Re-Newed RX: Other Instructions May have ibuprofen 200mg tabs and take 3 (600mg) every 6hrs as needed for cramps Consults/Follow Up Additional Follow Up: Yes (Dr Sierra in 6 weeks) Activity Activity: Activity as Tolerated Driving Instructions: No Driving for 1 Week Nothing Inside Vagina: No [place] (for 6 weeks.) Diet Discharge Diet: Regular Diet Return to The Hospital For: as below Symptoms to Report to : Bleeding Excessive, Fever Over 101 Degrees F, Vaginal Discharge Foul For Any Problems or Questions: Contact Your Physician JEANNE BRADSHAW MD Jan 27, 2020 08:26
--- NOTE | 2020-01-27 08:31 | Discharge Summary ---
Diagnosis/Chief Complaint Date of Admission Jan 24, 2020 at 18:26 Date of Discharge January 27, 2020 Admission Diagnosis Admission Diagnosis 1. Intrauterine at 39 weeks gestation 2. Methamphetamine use in Discharge Diagnosis 1. Intrauterine at 39 weeks gestation 2. Methamphetamine use in Chief Complaint/HPI Chief Complaint/HPI 24-year-old G2T2 initially presented to labor and delivery under the obstetrical care of Dr. Sierra. Patient lives at 39 weeks 3 days gestation at time of admission. Ultimately she had a precipitous delivery in the morning of January 25, 2020. Discharge Summary-OBS Procedures 1. Spontaneous vaginal delivery Discharge Physical Examination Allergies: Coded Allergies: No Known Drug Allergies (Unverified , 12/23/19) Vitals & I&Os Vital Sign - Last 12Hours Date Time Temp Pulse Resp B/P (MAP) Pulse Ox O2 Delivery O2 Flow Rate FiO2 01/27/20 05:45 36.3 104 18 125/79 (94) 99 Room Air General Appearance: No Acute Distress Respiratory: Clear to Auscultation Cardiovascular: Regular Rate Abdominal: Soft (with uterus firm) Hospital Course Following delivery patient underwent routine care orders. She did have director social consultation due to her methamphetamine use in . phlebotomy services technician has cleared her to go home with follow-up with behavioral health. Her hemoglobin on day of admission was 11.4. In the morning of January 26, 2020 her hemoglobin had only decreased to 10.0. She remained asymptomatic without any dizziness or leg pain. She tolerated regular diet. She was eager for dismissal in the morning of January 27, 2020. Discharge Instructions to patient/family Please see electronic discharge instructions given to patient. Discharge Medications Reviewed and agree with Discharge Medication list on patient's Discharge Instruction sheet Clinical Quality Measures DVT/VTE Risk/Contraindication: Risk Factor Score Per Nursin RFS Level Per Nursing on Admit: 1=Low/No VTE PPX JEANNE BRADSHAW MD Jan 27, 2020 08:30
--- NOTE | 2020-01-27 08:50 | NUR ---
Discharge instructions explained to pt with copy provided. Follow up appointments made and given to pt. Pt verbalizes understanding and signs to verify. Pt denies any needs or concerns at this time
--- NOTE | 2020-01-27 12:00 | NUR ---
Pt ambulates off unit with , staff member and all personal belongings. No s/s of distress noted
--- NOTE | 2020-01-28 09:28 | NUR ---
CM/SS: Notification from [place] Protection Report - via email, that the Intake was assigned for investigation. Report # [id number].
== END 2020-01-27 12:00 | disposition home or self-care (01) | DRG 807 ==
LOC: LDRP 18:26 → WS 01-25 07:14 → LDRP 01-25 07:14
PROVIDERS: ADMIT Family Medicine; ATTEND Family Medicine
PROC: 10E0XZZ Delivery of Products of Conception, External Approach (ICD-10-PCS; principal; 2020-01-25)
DX: O99.324 Drug use complicating childbirth (principal); Z37.0 Single live birth; Z3A.39 39 weeks gestation of pregnancy; O99.824 Streptococcus B carrier state complicating childbirth; O99.334 Smoking (tobacco) complicating childbirth; F17.210 Nicotine dependence, cigarettes, uncomplicated; F15.90 Other stimulant use, unspecified, uncomplicated; O69.81X0 Labor and delivery complicated by cord around neck, without compression, not applicable or unspecified
CPT/HCPCS: 36415; 80306; 81000; 85025; 86850; 86900; 86901; 87635; 90715